=== PATIENT | female | born 1945 | race Asian ===

== ENCOUNTER 2017-03-22 10:50 | Observation (INO) | payer MEDICARE, OTHER ==
[~2017-03-22] VITALS: Ht 149.9 cm; Wt 51.2 kg
[~2017-03-22 10:50] MED LIST: ATOR40TA68 PO; BACTDS PO; CHOL2000 PO; CLOP75TA27 PO; FENO48TA PO; IBUP400T22 PO; METO25TA4 PO; NIT4 SL; POTA8TAB2 PO; RANI150T5 PO; RANO500T2 PO; SERT100T PO; TRAM50TA2 PO; VALS1TAB74 PO
--- NOTE | 2017-03-22 12:23 | ERA ---
ER Documentation Chief Complaint Date/Time DATE: 03/22/17 TIME: 12:22 Chief Complaint cp since yesterday HPI The patient is a 72-year-old female, presenting with intermittent substernal chest pain for 1 day, associated with headache. She has similar symptoms previously, denies fever, chills, neck pain, chest pain with exertion of vomiting or diaphoresis. She has chronic dyspnea, denies abdominal pain, vomiting, dysuria, diarrhea. She does not smoke or drink Past medical history: Hypertension, dyslipidemia, CAD Past surgical history: Stent PCI, cholecystectomy ROS All systems reviewed and are negative except as per history of present illness. Medications Home Meds Active Scripts Sulfamethoxazole-Trimethoprim* (Bactrim* DS) 800-160 Mg Tab, 1 TAB PO BID for 5 Days, TAB Prov:ERIN SALAMANCA MD 03/21/16 Tramadol HCl (Tramadol HCl) 50 Mg Tablet, 50 MG PO Q4 Y for PAIN, #20 TAB Prov:ERIN SALAMANCA MD 03/21/16 Ibuprofen* (Motrin*) 400 Mg Tab, 400 MG PO Q6, #20 TAB Prov:ERIN SALAMANCA MD 03/21/16 Nitroglycerin* (Nitrostat*) 25 Tab Subl, 1 TAB SL Q5M Y for CHEST PAIN, #30 TAB Prov:MANUEL KNAPP MD 10/19/15 Reported Medications Potassium Chloride* (Klor-Con*) 8 Meq Tablet.sa, 8 MEQ PO DAILY, TAB 10/18/15 Cholecalciferol* (Vitamin D3*) 2,000 Unit Cap, 2000 UNIT PO DAILY, CAP 10/18/15 Clopidogrel Bisulfate (Clopidogrel) 75 Mg Tablet, 75 MG PO DAILY, #30 TAB 10/18/15 Ranitidine Hcl* (Ranitidine Hcl*) 150 Mg Tablet, 150 MG PO HS, TAB 10/18/15 Atorvastatin* (Atorvastatin*) 40 Mg Tablet, 40 MG PO QHS, #30 TAB 10/18/15 Sertraline Hcl* (Zoloft*) 100 Mg Tablet, 100 MG PO DAILY, #30 TAB 10/18/15 Fenofibrate Nanocrystallized* (Tricor*) 48 Mg Tablet, 48 MG PO DAILY, TAB 10/18/15 Valsartan-Hydrochlorothiazide (Valsartan-HCTZ) 80-12.5 Mg Tablet, 1 TAB PO DAILY , #30 TAB 10/18/15 Ranolazine* (Ranexa*) 500 Mg Tab.sr.12h, 500 MG PO Q12, TAB 10/18/15 Metoprolol Tartrate* (Lopressor*) 25 Mg Tablet, 25 MG PO BID, #60 TAB 10/18/15 Allergies Allergies: Coded Allergies: Penicillins (Verified Allergy, Unknown, 10/18/15) cephalexin (Verified Allergy, Unknown, 10/18/15) iodine (Verified Allergy, Unknown, 10/18/15) PMhx/Soc History of Surgery: No Anesthesia Reaction: No Hx Neurological Disorder: No Hx Respiratory Disorders: No Hx Cardiac Disorders: Yes (HTN, CHOLESTEROL, STENTS) Hx Psychiatric Problems: No Hx Miscellaneous Medical Probl: No Hx Alcohol Use: No Hx Substance Use: No Hx Tobacco Use: No Physical Exam Vitals Vital Signs Date Time Temp Pulse Resp B/P Pulse Ox O2 Delivery O2 Flow Rate FiO2 03/22/17 12:41 49 18 160/88 99 03/22/17 10:54 98.2 68 18 197/90 99 Physical Exam Const: No acute distress. Head: Atraumatic. Eyes: Normal Conjunctiva. ENT: Normal External Ears, Nose and Mouth. Neck: Full range of motion. No meningismus. Resp: Clear to auscultation bilaterally. Cardio: Regular rate and rhythm. Abd: Soft, non distended, normal bowel sounds, non tender. Skin: No petechiae or rashes. Back: No midline or flank tenderness. Ext: No cyanosis, or edema. Neur: Awake and alert. No focal deficit Psych: Normal Mood and Affect. Result Diagram: 03/22/17 1235 03/22/17 1235 Results 24 hrs Laboratory Tests Test 03/22/17 12:35 White Blood Count 5.910^3/ul Red Blood Count 4.8210^6/ul Hemoglobin 14.3g/dl Hematocrit 42.5% Mean Corpuscular Volume 88.2fl Mean Corpuscular Hemoglobin 29.7pg Mean Corpuscular Hemoglobin Concent 33.6g/dl Red Cell Distribution Width 12.2% Platelet Count 25080^3/UL Mean Platelet Volume 9.6fl Neutrophils % 47.6% Lymphocytes % 34.0% Monocytes % 11.1% Eosinophils % 6.6% Basophils % 0.5% Nucleated Red Blood Cells % 0.0/100WBC Neutrophils # 2.810^3/ul Lymphocytes # 2.010^3/ul Monocytes # 0.710^3/ul Eosinophils # 0.410^3/ul Basophils # 0.010^3/ul Nucleated Red Blood Cells # 0.010^3/ul Prothrombin Time 12.9Sec Prothrombin Time Ratio 1.0 INR International Normalized Ratio 0.97 Activated Partial Thromboplast Time 26.4Sec Sodium Level 142mmol/L Potassium Level 3.5mmol/L Chloride Level 106mmol/L Carbon Dioxide Level 27mmol/L Anion Gap 13 Blood Urea Nitrogen 16mg/dl Creatinine 0.71mg/dl Glucose Level 113mg/dl Calcium Level 9.7mg/dl Troponin I < 0.012ng/ml B-Type Natriuretic Peptide 353PG/ML Current Medications Medications (Trade) Dose Ordered Sig/[place] Route PRN Reason Start Time Stop Time Status Last Admin Dose Admin Aspirin (Aspirin) 325 mg ONCE STAT PO 03/22/17 12:30 03/22/17 12:31 Cancel Nitroglycerin (Nitroglycerin 2% Oint) 1 inch ONCE STAT TD 03/22/17 12:30 03/22/17 12:31 DC 03/22/17 12:57 Aspirin (Aspirin) 81 mg ONCE ONCE PO 03/22/17 13:00 03/22/17 13:01 DC 03/22/17 13:06 Aspirin (Aspirin) 162 mg ONCE ONCE PO 03/22/17 13:00 03/22/17 13:01 DC 03/22/17 13:07 Procedures/MDM EKG: Read by emergency physician Rate/Rhythm: Normal Sinus Rhythm 60 beats/min QRS, ST, T-waves: No ST elevation, no T inversion, left bundle branch block Impression: Abnormal EKG Radiologist chest x-ray reading is pending MEDICAL MAKING DECISION: The patient is a 71-year-old female with multiple cardiac risk factors, presenting with acute chest pain that is concerning for ACS. She already took an aspirin 81 mg prior to arrival. He was treated with 3 aspirin 81 mg and 1 inch of nitroglycerin ointment to chest wall with good response. The differential diagnoses considered include but are not limited to acute coronary syndrome, acute myocardial infarction, pericarditis, pulmonary embolism , aortic dissection, pneumonia, pleural effusion, pneumothorax, GERD, chest wall pain. Departure Diagnosis: Primary Impression: Chest pain Condition: Stable Comments I discussed the findings with the patient. I discussed the patient with the on- call hospitalist Dr. Mcbride who was made aware of the lab, the treatment, the patient condition. The patient is admitted to telemetry at 1:25 PM for 24 hours observation JUNIE TRINH MD Mar 22, 2017 12:23
[2017-03-22] MEDS ORDERED: ASPIRIN 325 MG TAB PO STA (12:30)
[2017-03-22] MEDS ORDERED: NITROGLYCERIN 2% 1 GM OINT PKT TD STA (12:30)
[2017-03-22 12:45] LABS: ADD SCAN DIFF NO
[2017-03-22 12:50] LABS: BASOPHILS % 0.5 % (0.0-2.0); EOSINOPHILS # 0.4 10^3/ul (0.0-0.5); EOSINOPHILS % 6.6 % (0.0-7.0); HEMATOCRIT 42.5 % (37.0-47.0); HEMOGLOBIN 14.3 g/dl (12.0-16.0); MEAN CORPUSCULAR HEMOGLOBIN 29.7 pg (29.0-33.0); MEAN CORPUSCULAR HGB CONC 33.6 g/dl (32.0-37.0); MEAN CORPUSCULAR VOLUME 88.2 fl (82.0-101.0); MEAN PLATELET VOLUME 9.6 fl (7.4-10.4); MONOCYTE # 0.7 10^3/ul (0.3-0.9); MONOCYTES % 11.1 % (0.0-11.0); NEUTROPHIL # 2.8 10^3/ul (1.6-7.5); NEUTROPHILS % 47.6 % (39.0-77.0); PLATELET COUNT 221 10^3/UL (140-415); RED BLOOD COUNT 4.82 10^6/ul (4.20-5.40); RED CELL DISTRIBUTION WIDTH 12.2 % (11.5-14.5); WHITE BLOOD COUNT 5.9 10^3/ul (4.8-10.8)
[2017-03-22] MEDS ORDERED: ASPIRIN 81 MG TAB PO ONE ×2 (13:00)
[2017-03-22 13:11] LABS: ANION GAP 13 (8-16); BLOOD UREA NITROGEN 16 mg/dl (7-20); CALCIUM 9.7 mg/dl (8.4-10.2); CARBON DIOXIDE 27 mmol/L (21-31); CHLORIDE 106 mmol/L (97-110); CREATININE 0.71 mg/dl (0.44-1.00); GLUCOSE 113 mg/dl (70-220); POTASSIUM 3.5 mmol/L (3.5-5.1); SODIUM 142 mmol/L (135-144)
[2017-03-22 13:15] LABS: INR 0.97; PROTIME 12.9 Sec (12.2-14.2)
[2017-03-22 13:16] LABS: PARTIAL THROMBOPLASTIN TIME 26.4 Sec (25.0-35.0)
[2017-03-22 13:22] LABS: B-TYPE NATRIURETIC PEPTIDE 353 PG/ML (0-125)
[2017-03-22 13:23] LABS: TROPONIN-I < 0.012 ng/ml (0.00-0.12)
--- NOTE | 2017-03-22 13:59 | RADRPT ---
PROCEDURE: XR Chest. CLINICAL INDICATION: Chest pain. TECHNIQUE: Single frontal view of the chest was obtained. COMPARISON: Chest x-ray 10/18/2015. FINDINGS: The soft tissues are normal monitoring electrodes draped across the chest.. There are degenerative osteophytes in the thoracic spine. The heart is upper limits of normal. The cardiomediastinal silh ouette and hilar structures are normal. The pulmonary vasculature is upper limits of normal. There are vascular calcifications in the aortic arch. The lungs are clear. The costophrenic angles are no rmal. IMPRESSION: 1. Atherosclerosis of the aortic arch. 2. Spondylosis of the thoracic spine. 3. No evidence of active cardiopulmonary disease. Stable chest compared to 10/18/2015. RPTAT:AAJJ Physician Smiley Date Time Electronically viewed and signed by Joshua Brand Physician on 03/22/2017 13:58 VIVI/
[2017-03-22] MEDS ORDERED: LEVO50TA74 PO (14:46)
[2017-03-22 15:11] VITALS: Ht 149.9 cm; Wt 51.2 kg
[2017-03-22 16:17] VITALS: BP 186/86; RESP 20
[2017-03-22] MEDS ORDERED: DOCUSATE SODIUM 100 MG CAP PO PRN (16:30)
[2017-03-22] MEDS ORDERED: BISACODYL 10 MG SUPP PR PRN (16:30)
[2017-03-22] MEDS ORDERED: HYDROCODONE/APAP (5/325) TAB PO PRN (16:30)
[2017-03-22] MEDS ORDERED: BISACODYL (EC) 5 MG TAB PO PRN (16:30)
[2017-03-22] MEDS ORDERED: NACL 0.9% 3 ML SYG IV SCH (16:30)
[2017-03-22] MEDS ORDERED: MAGNESIUM HYDROXIDE 30ML CUP PO PRN (16:30)
[2017-03-22 16:44] VITALS: PULSE 64
--- NOTE | 2017-03-22 17:42 | HP ---
Date/Time of Note Date/Time of Note DATE: 03/22/17 TIME: 17:42 Assessment/Plan VTE Prophylaxis VTE Prophylaxis Intervention: SCD's Lines/Catheters IV Catheter Type (from Nrsg): Saline Lock Assessment/Plan Assessment/Plan 71 yo F with pmhx CAD sp PCI, PAD admittted for chest pain x 1 day. Of greatest concern is prospect of ACS given pt's h/o CAD PLAN serial troponins, tele monitoring sp asa in the ER cont home plavix, BP, lipid meds TTE ordered will consult cardiology in AM for stress test eval depression: cont home SSRI hypothyroid: cont home synthroid FEN: cardiac diet then NPO after mn full code dispo pending cardiology eval in AM HPI/ROS Admit Date/Time Admit Date/Time Mar 22, 2017 at 13:26 Hx of Present Illness 71 yo F with pmhx CAD sp PCI, PAD, HTN presents with 1 day of chest pain. Pt reports chest pain began last night, radiated to back, kept patient from sleeping. Pt denies any recent med non adherence. 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 ROS 10p ROS neg except as per HPI PMH/Family/Social Past Medical History CAD sp PCI PAD depression Social History lives in the community Smoking Status: Never smoker Exam/Review of Systems Vital Signs Vitals Vital Signs Date Time Temp Pulse Resp B/P Pulse Ox O2 Delivery O2 Flow Rate FiO2 03/22/17 16:44 64 03/22/17 16:17 97.6 20 186/86 96 Exam Exam nad mmm EOMI no mrg lungs clear abd soft no rashes moves exts freely responds to questions appropriately Labs Result Diagram: 03/22/17 1235 03/22/17 1235 Medications Medications Current Medications Acetaminophen/ Hydrocodone Bitart ([place] (5/325)) 1 tab Q6H PRN PO PAIN LEVEL 4 -6; Start 03/22/17 at 16:30 Docusate Sodium (Colace) 100 mg Q12H PRN PO CONSTIPATION; Start 03/22/17 at 16: 30 Magnesium Hydroxide (Milk Of Mag) 30 ml DAILY PRN PO CONSTIPATION; Start at 16:30 Bisacodyl (Dulcolax) 5 mg DAILY PRN PO CONSTIPATION; Start 03/22/17 at 16:30 Bisacodyl (Dulcolax Supp) 10 mg DAILY PRN [place] CONSTIPATION; Start 03/22/17 at 16 :30 Heparin Sodium (Porcine) (Heparin (5000 Units/0.5 ml)) 5,000 unit Q8 SC ; Start 03/22/17 at 22:00 Procedures Procedures cardiac markers neg x 1 EKG NSR, +LBBB per ER CXR with athlerosclerosis MARTHA MCGOWAN MD Mar 22, 2017 17:42
[2017-03-22] MEDS ORDERED: traMADol 50 MG TAB PO PRN (18:00)
[2017-03-22 18:49] LABS: CREATINE KINASE 135 IU/L (23-200)
[2017-03-22 19:02] LABS: CK-MB 1.73 ng/ml (0.0-2.4)
[2017-03-22 19:03] LABS: TROPONIN-I < 0.012 ng/ml (0.00-0.12)
[2017-03-22 19:58] VITALS: BP 146/74; RESP 16
[2017-03-22 20:04] VITALS: PULSE 56
[2017-03-22] MEDS: RANOLAZINE (SR) 500 MG TAB PO SCH (21:46)
[2017-03-22] MEDS: ATORVASTATIN 40 MG TAB PO SCH (21:47)
[2017-03-22] MEDS: RANITIDINE 150 MG TAB PO SCH (21:47)
[2017-03-22] MEDS: METOPROLOL 25 MG TAB PO SCH (21:47)
[2017-03-22] MEDS: HEPARIN 5,000 UNIT/0.5 ML VIAL SC SCH (21:48)
[2017-03-22 23:42] VITALS: BP 129/64; RESP 16
[2017-03-23] VITALS (11 sets, daily range): BP systolic 132–175; BP diastolic 68–88; PULSE 51–63; RESP 16–20
[2017-03-23 01:45] LABS: CREATINE KINASE 126 IU/L (23-200)
[2017-03-23 01:56] LABS: CK-MB 1.72 ng/ml (0.0-2.4)
[2017-03-23 02:01] LABS: TROPONIN-I < 0.012 ng/ml (0.00-0.12)
[2017-03-23] MEDS: LEVOTHYROXINE 50 MCG TAB PO SCH (06:25)
[2017-03-23] MEDS: HEPARIN 5,000 UNIT/0.5 ML VIAL SC SCH ×3 (06:25→23:38)
[2017-03-23] MEDS ORDERED: CLOPIDOGREL 75 MG TAB PO SCH (08:00)
[2017-03-23] MEDS: VALSARTAN 80 MG TAB PO SCH ×2 (08:05→09:00)
--- NOTE | 2017-03-23 08:29 | CONS ---
Date/Time of Note Date/Time of Note DATE: 03/23/17 TIME: 08:29 Assessment/Plan Assessment/Plan Chief Complaint/Hosp Course Chest pain: Atypical overall but may have been related to her SBP of 197 on admission. Now resolved. Trops negative, EKG unremarkable. She certainly has known CAD and stents and a stress test is reasonable. HTN urgency: SBP 197 on admission, now controlled CAD s/p PCI 2008 and 2010 Anxiety -can switch plavix to home ASA 81mg -lipitor -valsartan, MTP -ranexa -echo -Lexiscan MPI today. If negative can be discharged with outpt f/u Problems: Consultation Date/Type/Reason Admit Date/Time Mar 22, 2017 at 13:26 Date of Consultation: Mar 23, 2017 Type of Consultation: Cardiology Reason for Consultation Chest pain Referring Provider: MARTHA MCGOWAN MD Hx of Present Illness 71 yo F with a h/o CAD (PCI to unknown vessel 2008 and 2010 in [place]), HTN, anxiety , who presented with chest pain. 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 Over the past 3 days s has been noticing chest pressure, SOB, palpitations. The symptoms come and go but are mostly constant. They are not exertional. 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 She admits to recent extra stressors in her life. Prior to her last two PCIs, her symptoms were SOB and palpitations but no chest pain. She takes ASA, lipitor, MTP, valsartan. She ran out of her ranexa one month ago. Currently asymptomatic. per HPI Past Medical History per HPI Family History Significant Family History: no pertinent family hx Social History Alcohol Use: none Smoking Status: Never smoker Exam/Review of Systems Vital Signs Vitals Vital Signs Date Time Temp Pulse Resp B/P Pulse Ox O2 Delivery O2 Flow Rate FiO2 03/23/17 08:09 97.8 16 16 174/88 97 Intake and Output 03/22/17 03/22/17 03/23/17 15:00 23:00 07:00 Intake Total 280 ml Balance 280 ml Exam Constitutional: alert, oriented Psych: nl mood/affect, no complaints Head: atraumatic, normocephalic Eyes: nl conjunctiva ENMT: nl external ears & nose Neck: supple, No jvd Respiratory: clear to auscultation, No crackles/rales Cardiovascular: regular rate and rhythm, No edema, No systolic murmur Gastrointestinal: non-tender, soft Extremities: normal pulses Neurological: nl mental status, nl speech Skin: No rash or lesions Results EKG: sinus, LBBB Result Diagram: 03/22/17 1235 03/22/17 1235 Results 24 hrs Laboratory Tests Test 03/22/17 12:35 03/22/17 18:20 03/23/17 00:50 White Blood Count 5.9 # Red Blood Count 4.82 Hemoglobin 14.3 Hematocrit 42.5 Mean Corpuscular Volume 88.2 Mean Corpuscular Hemoglobin 29.7 Mean Corpuscular Hemoglobin Concent 33.6 Red Cell Distribution Width 12.2 Platelet Count 221 Mean Platelet Volume 9.6 Neutrophils % 47.6 Lymphocytes % 34.0 Monocytes % 11.1 H Eosinophils % 6.6 Basophils % 0.5 Nucleated Red Blood Cells % 0.0 Neutrophils # 2.8 Lymphocytes # 2.0 Monocytes # 0.7 Eosinophils # 0.4 Basophils # 0.0 Nucleated Red Blood Cells # 0.0 Prothrombin Time 12.9 Prothrombin Time Ratio 1.0 INR International Normalized Ratio 0.97 Activated Partial Thromboplast Time 26.4 Sodium Level 142 Potassium Level 3.5 Chloride Level 106 Carbon Dioxide Level 27 Anion Gap 13 Blood Urea Nitrogen 16 Creatinine 0.71 Glucose Level 113 Calcium Level 9.7 Troponin I < 0.012 < 0.012 < 0.012 B-Type Natriuretic Peptide 353 H Creatine Kinase 135 126 Creatine Kinase Index 1.3 1.4 Creatinine Kinase MB (Mass) 1.73 1.72 Medications Medications Current Medications Acetaminophen/ Hydrocodone Bitart ([place] (5/325)) 1 tab Q6H PRN PO PAIN LEVEL 4 -6; Start 03/22/17 at 16:30 Docusate Sodium (Colace) 100 mg Q12H PRN PO CONSTIPATION; Start 03/22/17 at 16: 30 Magnesium Hydroxide (Milk Of Mag) 30 ml DAILY PRN PO CONSTIPATION; Start at 16:30 Bisacodyl (Dulcolax) 5 mg DAILY PRN PO CONSTIPATION; Start 03/22/17 at 16:30 Bisacodyl (Dulcolax Supp) 10 mg DAILY PRN [place] CONSTIPATION; Start 03/22/17 at 16 :30 Heparin Sodium (Porcine) (Heparin (5000 Units/0.5 ml)) 5,000 unit Q8 SC Last administered on 03/23/17 06:25; Admin Dose 5,000 UNIT; Start 03/22/17 at 22:00 Atorvastatin Calcium (Lipitor) 40 mg QHS PO Last administered on 03/22/17 21: 47; Admin Dose 40 MG; Start 03/22/17 at 21:00 Cholecalciferol (Vitamin D) 2,000 unit DAILY PO ; Start 03/23/17 at 09:00 Clopidogrel Bisulfate (plaVIX) 75 mg DAILY PO Last administered on 03/23/17 08 :05; Admin Dose 75 MG; Start 03/23/17 at 08:00 Fenofibrate (Tricor) 48 mg DAILY PO ; Start 03/23/17 at 09:00 Metoprolol Tartrate (Lopressor) 25 mg BID PO Last administered on 03/22/17 21: 47; Admin Dose 25 MG; Start 03/22/17 at 21:00 Potassium Chloride (Micro-K) 8 meq DAILY PO ; Start 03/23/17 at 09:00 Ranitidine HCl (Zantac) 150 mg HS PO Last administered on 03/22/17 21:47; Admin Dose 150 MG; Start 03/22/17 at 21:00 Ranolazine (Ranexa) 500 mg Q12 PO Last administered on 03/22/17 21:46; Admin Dose 500 MG; Start 03/22/17 at 21:00 Sertraline HCl (Zoloft) 100 mg DAILY PO ; Start 03/23/17 at 09:00 Tramadol HCl (Ultram) 50 mg Q4H PRN PO PAIN; Start 03/22/17 at 18:00 Valsartan (Diovan) 80 mg DAILY PO Last administered on 03/23/17 08:05; Admin Dose 80 MG; Start 03/23/17 at 08:00 Hydrochlorothiazide (Hydrochlorothiazide) 12.5 mg DAILY PO ; Start 03/23/17 at 09:00 VIKAS CHAPARRO 13, 2017 08:29
[2017-03-23] MEDS: METOPROLOL 25 MG TAB PO SCH ×3 (09:00→23:39)
[2017-03-23] MEDS ORDERED: REGADENOSON 0.4 MG/5 ML SYG ONE (11:56)
--- NOTE | 2017-03-23 12:25 | OPR ---
Date/Time of Note Date/Time of Note DATE: 03/23/17 TIME: 12:25 Operative Report Free Text/Dictation Nuclear medicine myocardial perfusion imaging: Date: 03/23/2017 Indication: Chest pain. Known CAD After informed consent, the patient was given IV Lexiscan. Pt was monitored for a total of 8 minutes post-infusion without any sings of arrhythmias. Patient had mild chest pain. Baseline LBBB on EKG was unchanged. Please refer to separate note for imaging results. VIKAS CHAPARRO Mar 23, 2017 12:25
--- NOTE | 2017-03-23 12:35 | RADRPT ---
Echocardiogram Report Patient Name: BANDAR MARTINEZ Gender: Female Date: 1945 Study Date: 23-Mar-2017 Break Out Worker: Geri Lewis [facility] Location: [id number] Ref. Physician: MARTHA MCGOWAN Quality: Good Procedures: Transthoracic echocardiogram with complete 2D, M-Mode, and doppler examination. Indications: Chest Pain. 2D/M Mode Doppler Measurement Value Normal Ranges Measurement Value Normal Ranges LVIDd 2D 4.5 3.5 - 5.6 cm AV Peak Javed 1.6 m/sec LVIDs 2D 3.4 2.1 - 4.1 cm AV Peak PG 10.0 mmHg FS 2D 24.9 % LVOT Peak Javed 0.9 m/sec LVPWd 2D 1.0 0.6 - 1.1 cm LVOT Peak PG 3.0 mmHg IVSd 2D 1.1 0.6 - 1.1 cm MV E Peak Javed 0.7 m/sec IVS/LVPW 2D 1.2 MV A Peak Javed 0.8 m/sec AoR Diam 2D 2.7 2.0 - 3.7 cm MV E/A 0.8 LA/Ao 2D 1 0 - 1 MV Decel Time 246 msec EDV 2D 91.1 cm3 MV E/A 0.8 ESV 2D 38.6 cm3 TR Peak Javed 2.5 m/sec LA Dimen 2D 3.5 2.3 - 4.0 cm TR Peak PG 24.0 mmHg RVSP 27.0 mmHg Findings Left Ventricle: Normal left ventricular systolic function. Normal left ventricular cavity size. Mild concentric left ventricular hypertrophy. Ejection fraction is visually estimated at 55 %. Tissue Doppler/Mitral Doppler indices are consistent with impaired relaxation (Stage I diastolic dysfunction). Resting Segmental Wall Motion Analysis: Abnormal septal motion due to LBBB. Right Ventricle: Normal right ventricular size. Normal right ventricular systolic function. Left Atrium: The left atrium is normal in size. Right Atrium: The right atrium is normal in size. Mitral Valve: Mild mitral annular calcification. Mild mitral valve regurgitation. Aortic Valve: No significant aortic stenosis or insufficiency. Aortic cusps appear mildly calcified. Tricuspid Valve: Normal appearance of the tricuspid valve. Estimated peak PA systolic pressure 27 mmHg. There is trace tricuspid regurgitation. Pulmonic Valve: Pulmonic valve not well visualized. Pericardium: Normal pericardium with no significant pericardial effusion. Aorta: Normal aortic root. IVC: Normal size and normal respiratory collapse consistent with normal right atrial pressure. Conclusions 1.Normal left ventricular systolic function. Normal left ventricular cavity size. Mild concentric left ventricular hypertrophy. Ejection fraction is visually estimated at 55 %. Tissue Doppler/Mitral Doppler indices are consistent with impaired relaxation (Stage I diastolic dysfunction). Abnormal septal motion due to LBBB. 2.Mild mitral valve regurgitation. 3.Estimated peak PA systolic pressure 27 mmHg based on RA pressure of 3 mmHg. Electronically Signed By: Malik Alvarez 23-Mar-2017 12:34:30 -0700 Patient Name: BANDAR MARTINEZ Study Date: 23-Mar-[id number]
[2017-03-23] MEDS ORDERED: HYDR12.53 PO (12:54)
--- NOTE | 2017-03-23 14:22 | PN ---
Date/Time of Note Date/Time of Note DATE: 03/23/17 TIME: 14:16 Assessment/Plan VTE Prophylaxis VTE Prophylaxis Intervention: SCD's Lines/Catheters IV Catheter Type (from Nrsg): Saline Lock Assessment/Plan Assessment/Plan 71 yo F with pmhx CAD sp PCI, PAD admittted for 1. chest pain: resolved / s/p lexiscan / 2. depression: cont home SSRI 3. hypothyroid: cont home synthroid 4. Hx of CAD s/p PCI PLAN: d/c if lexiscan negative. Subjective 24 Hr Interval Summary Free Text/Dictation Patient seen and examined. post Lexiscan, no chest pain Exam/Review of Systems Vital Signs Vitals Vital Signs Date Time Temp Pulse Resp B/P Pulse Ox O2 Delivery O2 Flow Rate FiO2 03/23/17 11:59 98.2 57 16 175/84 95 Intake and Output 03/22/17 03/22/17 03/23/17 15:00 23:00 07:00 Intake Total 280 ml Balance 280 ml Exam GENERAL: Patient is alert, oriented x 3, in no apparent distress; does not appear acutely or chronically ill. Patient is able to sit up unassisted.Patient makes good eye contact, is conversant, interactive, coherent. Patient appears calm and comfortable and is able to follow commands. HEENT: Oropharynx is clear. There is no carotid bruit, no masses. Patient's pupils are equal, round and reactive to light bilaterally. Extraocular motions are intact. There is no scleral icterus. There is no facial asymmetry. NECK: Supple. LUNGS: Clear to auscultation bilaterally with good air entry. No Wheezes or crackles. HEART: S1, S2. No murmur, gallops or rubs. Regular rate and rhythm. ABDOMEN: Soft, nontender. Normoactive bowel sounds. There are no stigmata of chronic liver disease. BACK: no costovertebral angle tenderness. GENITOURINARY: Deferred. EXTREMITIES: No edema. There is no cyanosis, clubbing. There are 2+ pulses bilaterally distally. NEUROLOGIC: The patient has no lateralizing signs. SKIN: Otherwise, unremarkable. Results Result Diagram: 03/22/17 1235 03/22/17 1235 Results 24 hrs Laboratory Tests Test 03/22/17 18:20 03/23/17 00:50 Creatine Kinase 135 126 Creatine Kinase Index 1.3 1.4 Creatinine Kinase MB (Mass) 1.73 1.72 Troponin I < 0.012 < 0.012 Medications Medications Current Medications Acetaminophen/ Hydrocodone Bitart ([place] (5/325)) 1 tab Q6H PRN PO PAIN LEVEL 4 -6; Start 03/22/17 at 16:30 Docusate Sodium (Colace) 100 mg Q12H PRN PO CONSTIPATION; Start 03/22/17 at 16: 30 Magnesium Hydroxide (Milk Of Mag) 30 ml DAILY PRN PO CONSTIPATION; Start at 16:30 Bisacodyl (Dulcolax) 5 mg DAILY PRN PO CONSTIPATION; Start 03/22/17 at 16:30 Bisacodyl (Dulcolax Supp) 10 mg DAILY PRN [place] CONSTIPATION; Start 03/22/17 at 16 :30 Heparin Sodium (Porcine) (Heparin (5000 Units/0.5 ml)) 5,000 unit Q8 SC Last administered on 03/23/17 06:25; Admin Dose 5,000 UNIT; Start 03/22/17 at 22:00 Atorvastatin Calcium (Lipitor) 40 mg QHS PO Last administered on 03/22/17 21: 47; Admin Dose 40 MG; Start 03/22/17 at 21:00 Cholecalciferol (Vitamin D) 2,000 unit DAILY PO ; Start 03/23/17 at 09:00 Clopidogrel Bisulfate (plaVIX) 75 mg DAILY PO Last administered on 03/23/17 08 :05; Admin Dose 75 MG; Start 03/23/17 at 08:00 Fenofibrate (Tricor) 48 mg DAILY PO ; Start 03/23/17 at 09:00 Metoprolol Tartrate (Lopressor) 25 mg BID PO Last administered on 03/22/17 21: 47; Admin Dose 25 MG; Start 03/22/17 at 21:00 Potassium Chloride (Micro-K) 8 meq DAILY PO ; Start 03/23/17 at 09:00 Ranitidine HCl (Zantac) 150 mg HS PO Last administered on 03/22/17 21:47; Admin Dose 150 MG; Start 03/22/17 at 21:00 Ranolazine (Ranexa) 500 mg Q12 PO Last administered on 03/22/17 21:46; Admin Dose 500 MG; Start 03/22/17 at 21:00 Sertraline HCl (Zoloft) 100 mg DAILY PO ; Start 03/23/17 at 09:00 Tramadol HCl (Ultram) 50 mg Q4H PRN PO PAIN; Start 03/22/17 at 18:00 Valsartan (Diovan) 80 mg DAILY PO Last administered on 03/23/17t 09:00; Admin Dose 80 MG; Start 03/23/17 at 08:00 Hydrochlorothiazide (Hydrochlorothiazide) 12.5 mg DAILY PO ; Start 03/23/17 at 09:00 Amlodipine Besylate (Norvasc) 5 mg DAILY PO ; Start 03/23/17 at 12:30 TERRIE CAUSEY Mar 23, 2017 14:22
[2017-03-23] MEDS: POTASSIUM CHLORIDE (SR) 8 MEQ CAP PO SCH (14:46)
[2017-03-23] MEDS: FENOFIBRATE 48 MG TAB PO SCH (14:46)
[2017-03-23] MEDS: RANOLAZINE (SR) 500 MG TAB PO SCH ×2 (14:47→20:32)
[2017-03-23] MEDS: CHOLECALCIFEROL 2,000 UNIT CAP PO SCH (14:48)
[2017-03-23] MEDS: HYDROCHLOROTHIAZIDE 12.5 MG CAP PO SCH (14:48)
[2017-03-23] MEDS: SERTRALINE 100 MG TAB PO SCH (14:52)
[2017-03-23] MEDS: AMLODIPINE 5 MG TAB PO SCH (14:52)
--- NOTE | 2017-03-23 16:36 | RADRPT ---
PROCEDURE: Nuclear medicine myocardial stress and rest scan. CLINICAL INDICATION: Chest pain. TECHNIQUE: The patient was stressed with 0.4 mg IV Lexiscan. 9.3 mCi technetium 99m Tetrofosmin ( Myoview) was administered rest. 28.9 mCi technetium 99m Tetrofosmin (Myoview) was administered dur ing stress. Images were obtained and reconstructed in the short axis, horizontal long axis, and valarie tical long axis. Gated images were obtained and ejection fraction was calculated. COMPARISON: No prior study is available for comparison. FINDINGS: The stress and rest images demonstrate normal uptake throughout. There is no fixed abnormality or r eversible abnormality. There is no evidence of transient ischemic dilatation. Wall motion is normal. There is normal wall thickening during systole. Ejection fraction at stress is 53%. IMPRESSION: 1. No evidence of stress induced myocardial ischemia. 2. Ejection fraction at stress is 53%. RPTAT: QQ .Aleksander Higuera MD, MD Date Time Electronically viewed and signed by .Aleksander Higuera MD, on 03/23/2017 16:36 .R/
[2017-03-23] MEDS: ATORVASTATIN 40 MG TAB PO SCH (20:32)
[2017-03-23] MEDS: RANITIDINE 150 MG TAB PO SCH (20:32)
[2017-03-24] VITALS (7 sets, daily range): BP systolic 136–163; BP diastolic 69–90; PULSE 49–65; RESP 14–20
[2017-03-24] MEDS: HEPARIN 5,000 UNIT/0.5 ML VIAL SC SCH ×2 (06:29→14:00)
[2017-03-24] MEDS: LEVOTHYROXINE 50 MCG TAB PO SCH (06:29)
--- NOTE | 2017-03-24 08:23 | CONS ---
Date/Time of Note Date/Time of Note DATE: 03/24/17 TIME: 08:21 Assessment/Plan Assessment/Plan Chief Complaint/Hosp Course Chest pain: Atypical overall but may have been related to her SBP of 197 on admission. Now resolved. Trops negative, EKG unremarkable. Stress MPI 03/23 normal HTN urgency: SBP 197 on admission, now controlled CAD s/p PCI 2008 and 2010 Anxiety -ok for d/c -switch plavix to home ASA 81mg -lipitor -valsartan, MTP, HCTZ -ranexa -amlodipine 5 mg added Problems: Consultation Date/Type/Reason Admit Date/Time Mar 22, 2017 at 13:26 Initial Consult Date 03/23/17 Type of Consultation: Cardiology Referring Provider: MARTHA MCGOWAN MD 24 HR Interval Summary Free Text/Dictation No o/n events. No further chest pain Exam/Review of Systems Vital Signs Vitals Vital Signs Date Time Temp Pulse Resp B/P Pulse Ox O2 Delivery O2 Flow Rate FiO2 03/24/17 08:08 97.7 58 18 160/90 03/24/17 03:34 97 Intake and Output 03/23/17 03/23/17 03/24/17 15:00 23:00 07:00 Intake Total 50 ml 700 ml Balance 50 ml 700 ml Exam Constitutional: alert, oriented Psych: no complaints Head: atraumatic, normocephalic Neck: No jvd Respiratory: clear to auscultation, No crackles/rales Cardiovascular: regular rate and rhythm, No edema Gastrointestinal: non-tender, soft Neurological: nl mental status, nl speech Results Result Diagram: 03/22/17 1235 03/22/17 1235 Medications Medications Current Medications Acetaminophen/ Hydrocodone Bitart ([place] (5/325)) 1 tab Q6H PRN PO PAIN LEVEL 4 -6; Start 03/22/17 at 16:30 Docusate Sodium (Colace) 100 mg Q12H PRN PO CONSTIPATION; Start 03/22/17 at 16: 30 Magnesium Hydroxide (Milk Of Mag) 30 ml DAILY PRN PO CONSTIPATION; Start at 16:30 Bisacodyl (Dulcolax) 5 mg DAILY PRN PO CONSTIPATION; Start 03/22/17 at 16:30 Bisacodyl (Dulcolax Supp) 10 mg DAILY PRN MD CONSTIPATION; Start 03/22/17 at 16 :30 Heparin Sodium (Porcine) (Heparin (5000 Units/0.5 ml)) 5,000 unit Q8 SC Last administered on 03/24/17 06:29; Admin Dose 5,000 UNIT; Start 03/22/17 at 22:00 Atorvastatin Calcium (Lipitor) 40 mg QHS PO Last administered on 03/23/17 20: 32; Admin Dose 40 MG; Start 03/22/17 at 21:00 Cholecalciferol (Vitamin D) 2,000 unit DAILY PO Last administered on 03/23/17 14:48; Admin Dose 2,000 UNIT; Start 03/23/17 at 09:00 Fenofibrate (Tricor) 48 mg DAILY PO Last administered on 03/23/17 14:46; Admin Dose 48 MG; Start 03/23/17 at 09:00 Metoprolol Tartrate (Lopressor) 25 mg BID PO Last administered on 03/23/17 23: 39; Admin Dose 25 MG; Start 03/22/17 at 21:00 Potassium Chloride (Micro-K) 8 meq DAILY PO Last administered on 03/23/17 14: 46; Admin Dose 8 MEQ; Start 03/23/17 at 09:00 Ranitidine HCl (Zantac) 150 mg HS PO Last administered on 03/23/17 20:32; Admin Dose 150 MG; Start 03/22/17 at 21:00 Ranolazine (Ranexa) 500 mg Q12 PO Last administered on 03/23/17 20:32; Admin Dose 500 MG; Start 03/22/17 at 21:00 Sertraline HCl (Zoloft) 100 mg DAILY PO Last administered on 03/23/17 14:52; Admin Dose 100 MG; Start 03/23/17 at 09:00 Tramadol HCl (Ultram) 50 mg Q4H PRN PO PAIN; Start 03/22/17 at 18:00 Valsartan (Diovan) 80 mg DAILY PO Last administered on 03/23/17 09:00; Admin Dose 80 MG; Start 03/23/17 at 08:00 Hydrochlorothiazide (Hydrochlorothiazide) 12.5 mg DAILY PO Last administered on 03/23/17 14:48; Admin Dose 12.5 MG; Start 03/23/17 at 09:00 Amlodipine Besylate (Norvasc) 5 mg DAILY PO Last administered on 03/23/17t 14: 52; Admin Dose 5 MG; Start 03/23/17 at 12:30 Aspirin (Aspirin) 81 mg DAILY PO ; Start 03/24/17 at 09:00 VIKAS CHAPARRO Mar 24, 2017 08:22
[2017-03-24] MEDS ORDERED: ASPIRIN 81 MG TAB PO SCH (09:00)
[2017-03-24] MEDS: HYDROCHLOROTHIAZIDE 12.5 MG CAP PO SCH (09:11)
[2017-03-24] MEDS: VALSARTAN 80 MG TAB PO SCH (09:11)
[2017-03-24] MEDS: POTASSIUM CHLORIDE (SR) 8 MEQ CAP PO SCH (09:12)
[2017-03-24] MEDS: METOPROLOL 25 MG TAB PO SCH (09:12)
[2017-03-24] MEDS: FENOFIBRATE 48 MG TAB PO SCH (09:13)
[2017-03-24] MEDS: SERTRALINE 100 MG TAB PO SCH (09:13)
[2017-03-24] MEDS: RANOLAZINE (SR) 500 MG TAB PO SCH (09:15)
[2017-03-24] MEDS: AMLODIPINE 5 MG TAB PO SCH (09:16)
[2017-03-24] MEDS: CHOLECALCIFEROL 2,000 UNIT CAP PO SCH (09:17)
[2017-03-24] MEDS ORDERED: AMLO5TAB4 PO (12:57)
[2017-03-24] MEDS ORDERED: ASPI-535 PO (12:57)
--- NOTE | 2017-03-24 12:58 | PDOCDIS ---
Discharge Instructions CONDITION Patient Condition: Good HOME CARE INSTRUCTIONS: Special Diet: Cardiac ACTIVITY: Activity Restrictions: Slowly Increase Activity Rest between Activity Avoid heavy lifting Avoid Heavy Housework FOLLOW UP/APPOINTMENTS Appointments follow up with her own PMD in 1-2 week. Follow up with [facility] in 1-2 week after discharge SUSHANT DEVINE MD Mar 24, 2017 12:58
== END 2017-03-24 15:58 | disposition home or self-care (01) ==
LOC: E/R 10:50 → MS4 13:26
PROVIDERS: ADMIT Family Medicine; ATTEND Family Medicine
DX: R07.89 Other chest pain (principal); I16.0 Hypertensive urgency; F41.9 Anxiety disorder, unspecified; I10 Essential (primary) hypertension; E78.5 Hyperlipidemia, unspecified; I25.10 Atherosclerotic heart disease of native coronary artery without angina pectoris; Z95.5 Presence of coronary angioplasty implant and graft; F32.9 Major depressive disorder, single episode, unspecified; E03.9 Hypothyroidism, unspecified; Z90.49 Acquired absence of other specified parts of digestive tract; Z88.1 Allergy status to other antibiotic agents; Z88.0 Allergy status to penicillin; Z91.041 Radiographic dye allergy status
CPT/HCPCS: 36415; 71010; 78452; 80048; 82550; 82553; 83880; 84484; 85025; 85610; 85730; 93005; 93017; 93306; 99285; A9500; A9505; G0378; J1644; J2785